=== PATIENT | male | born 1985 | race Caucasian/White ===

== ENCOUNTER 2019-06-18 11:45 | Emergency (ER) | payer BC ==
[2019-06-18 12:57] LABS: Hemoglobin 17.7 g/dL (14.0-18.0); Mean Corpuscular HGB CONC 33.7 g/dL (32.0-36.0); Mean Corpuscular Hemoglobin 33.3 pg (27.0-31.0); Mean Corpuscular Volume 98.9 fL (78.0-98.0); Mean Platelet Volume 9.5 fL (7.4-10.4); Platelet Count 162 thou/uL (130-400); RBC Distribution Width 11.6 % (11.5-14.5); Red Blood Cell (RBC) Count 5.32 mill/uL (4.70-6.10); White Blood Cell (WBC) Count 6.2 thou/uL (4.8-10.8)
[2019-06-18 13:13] LABS: ALT (SGPT) 57 U/L (8-55); AST (SGOT) 61 U/L (5-34); Albumin 4.2 g/dL (3.5-5.0); Alkaline Phosphatase 81 U/L (40-110); Anion Gap 13 mmol/L (10-20); BUN (Urea Nitrogen) 7 mg/dL (8.9-20.6); Bilirubin, Total 0.6 mg/dL (0.2-1.2); Calc. Creatinine Clearance 0 mL/min (70-130); Calcium 9.2 mg/dL (7.8-10.44); Carbon Dioxide 24 mmol/L (22-29); Chloride 101 mmol/L (98-107); Estimated GFR-MDRD 71; Globulin 3.4 g/dL (2.4-3.5); Glucose 116 mg/dL (70-105); Potassium 3.9 mmol/L (3.5-5.1); Protein, Total 7.6 g/dL (6.0-8.3); Sodium 134 mmol/L (136-145)
[2019-06-18 13:15] LABS: Band 48 % (5-11); Eosinophils 1 % (0-10); Lymphocytes 7 % (21-51); MDiff Complete? YES; Monocytes 7 % (0-10); Neutrophil 34 % (42-75); RBC Morphology Normal; Reactive Lymphocytes 3 % (0-10); Reflex for Review?? YES
[2019-06-18] MEDS ORDERED: Ondansetron PF 4 MG/2 ML Vial ONE ×2 (13:29→17:13)
[2019-06-18 17:34] LABS: Bilirubin Negative (Negative); Blood, Urine Negative (Negative); Clarity Clear (Clear); Glucose, Urine (Dipstick) Normal (Negative); Leukocyte Negative Leu/uL (Negative); Nitrite Negative (Negative); Protein, Urine (Dipstick) 20 mg/dL (Neg-Trace); Urobilinogen Normal mg/dL (Less than 2)
--- NOTE | 2019-06-18 18:46 | ULT ---
Exam: Right upper quadrant ultrasound: HISTORY: Right upper quadrant pain, concern for cholecystitis COMPARISON: None FINDINGS: Visualized liver:Unremarkable. Gallbladder:No evidence of gallstones, wall thickening, edema, or pericholecystic fluid. Common bile duct:Within normal limits. The visualized pancreas and right kidney are unremarkable. No evidence for abscess or abnormal fluid collection in the right upper quadrant. IMPRESSION: Unremarkable right upper quadrant ultrasound. No evidence of gallstones.
== END 2019-06-18 19:30 | disposition home or self-care (01) ==
LOC: ERS 11:45
DX: R19.7 Diarrhea, unspecified (principal); R11.0 Nausea
CPT/HCPCS: 36415; 76705; 80053; 81003; 83690; 85025; 85060; 96361; 96374; 96376; J2405

== ENCOUNTER 2021-11-30 16:25 | Emergency (ER) | payer BC | END 2021-11-30 17:49 | disposition home or self-care (01) | LOC: ERS 16:25 | DX: L25.9 Unspecified contact dermatitis, unspecified cause (principal); F17.200 Nicotine dependence, unspecified, uncomplicated | CPT/HCPCS: 99282 ==

== ENCOUNTER 2022-04-16 02:31 | Emergency (ER) | payer OTHER, BC ==
[2022-04-16] MEDS ORDERED: Boostrix 0.5 ML (Tdap) VIAL (>/=7 yrs of age) ONE (03:14)
[2022-04-16] MEDS ORDERED: Lidocaine 1% PF 5 ML VIAL ONE (03:21)
[2022-04-16] MEDS ORDERED: Iopamidol-370 76% 500 ML 1 ML ONE (09:11)
== END 2022-04-16 06:30 | disposition home or self-care (01) ==
LOC: ERS 02:31
DX: S03.2XXA Dislocation of tooth, initial encounter (principal); S01.01XA Laceration without foreign body of scalp, initial encounter; F17.200 Nicotine dependence, unspecified, uncomplicated; Z23 Encounter for immunization; V49.49XA Driver injured in collision with other motor vehicles in traffic accident, initial encounter
CPT/HCPCS: 12013; 70450; 70486; 71260; 72125; 74177; 90471; 90715; G0390; Q9967